=== PATIENT | male | born 1970 ===

== ENCOUNTER 2018-05-05 13:51 | Inpatient (IN) | payer OTHER ==
[~2018-05-05] VITALS: Ht 170.2 cm; Wt 113.4 kg
[2018-05-07] MEDS ORDERED: LEVAQUIN750 MG PO (16:52)
== END 2018-05-07 17:20 | disposition home or self-care (01) | DRG 690 ==
LOC: ER 13:51 → MEDJ 19:40 → SEC-K 19:40 → MEDJ 05-06 05:16
PROVIDERS: ADMIT Internal Medicine
PROC: BW4GZZZ Ultrasonography of Pelvic Region (ICD-10-PCS; principal; 2018-05-06)
DX: N39.0 Urinary tract infection, site not specified (principal); B96.29 Other Escherichia coli [E. coli] as the cause of diseases classified elsewhere